=== PATIENT | male | born 1985 | race African-American/Black ===

== ENCOUNTER 2023-03-01 06:21 | Inpatient (IN) ==
[2023-03-01 07:20] LABS: ABS Lymphocytes 0.3 10^3/uL (1.0-4.8); ABS Monocytes 0.5 10^3/uL (0.0-1.1); ABS Neutrophils 8.1 10^3/uL (1.5-7.6); ABS Nucleated RBC 0.01 10^3/ul; Eosinophil % 0.5 %; Hematocrit 35.4 % (38-53); Hemoglobin 11.7 g/dL (13.2-16.3); Lymphocyte % 3.4 %; Mean Corpuscular Hemoglobin 27.9 pg (27-33); Mean Corpuscular Hgb Conc 32.9 g/dL (31-36); Mean Corpuscular Volume 84.7 fL (80-97); Nucleated Red Blood Cells % 0.1 %/100WBC (0.0-0.8); Platelet Count 262 10^3/uL (150-450); Red Blood Count 4.18 10^6/uL (4.06-5.63); Red Cell Distribution Width 15.9 % (12-17); White Blood Count 8.9 10^3/uL (3.6-10.2)
[2023-03-01 07:33] LABS: Albumin 4.6 g/dL (3.2-5.2); Albumin/Globulin Ratio 1.4 (1-3); Calcium 8.5 mg/dL (8.6-10.3); Creatinine, Serum 6.34 mg/dL (0.67-1.17); Globulin 3.4 g/dL (2-4); Potassium 3.7 mmol/L (3.5-5.0); Total Bilirubin 0.4 mg/dL (0.2-1.0); eGFR CKD-EPI 10.8 (>60)
[2023-03-01 07:35] LABS: INR 1.06 (0.83-1.13)
[2023-03-01 08:04] LABS: Magnesium 1.3 mg/dL (1.9-2.7)
[2023-03-01] MEDS ORDERED: Magnesium Sulfate 2 gm BAG 2 GM/50 ML BAG IVPB ONE (08:08)
[2023-03-01 08:35] LABS: High Sensitivity Troponin 1 Hr 74 pg/mL (<20)
[2023-03-01] MEDS ORDERED: Piperacillin/Tazobac 3.375 BAG 3.375 GM/100 ML BAG IV ONE (10:06)
[2023-03-01 10:30] LABS: Urine Appearance Cloudy; Urine Bilirubin Negative (Negative); Urine Blood Negative (Negative); Urine Color Yellow; Urine Glucose Negative (Negative); Urine Ketones Negative (Negative); Urine Nitrite Negative (Negative); Urine Protein 1+(30 mg/dL) (Negative); Urine Specific Gravity 1.009 (1.002-1.030); Urine Urobilinogen Negative (Negative)
[2023-03-01 10:36] LABS: Urine Bacteria 1+ (Absent); Urine Red Blood Cell 1+(3-5/hpf) (Absent); Urine White Blood Cell 3+(>20/hpf) (Absent)
[2023-03-01] MEDS ORDERED: Vancomycin 1,500 MG in NS 0.9% 250 ml 250 ML IVPB ONE (11:00)
[2023-03-01] MEDS ORDERED: Vancomycin 1,250 MG in NS 0.9% 250 ml 250 ML IVPB SCH (11:00)
[2023-03-01] MEDS ORDERED: Zosyn per Pharmacy NOTE FOLLOW UP SCH (12:00)
[2023-03-01] MEDS ORDERED: Vancomycin per Pharmacy 1 EA NOTE FOLLOW UP SCH (12:00)
[2023-03-01] MEDS ORDERED: NS 0.9% 1000 ml BAG 100 ML IV PRN (13:49)
[2023-03-01] MEDS ORDERED: Albumin Human 25% 25 GM/100 ML BTL IV PRN (13:49)
[2023-03-01] MEDS ORDERED: NS 0.9% 1000 ml BAG 200 ML IV PRN (13:49)
[2023-03-01] MEDS ORDERED: Lactated Ringers 1000 ml BAG 1,000 ML IV SCH (14:00)
[2023-03-01] MEDS: ZOSYN 3.375 GM Q12H per EXTENDED INFUSION IV SCH (14:28)
[2023-03-01] MEDS: Heparin 1,000 UNIT/ML 10 ml (10,000 UNITS) CATHLAB/DIALYSIS DIALYSIS PRN ×4 (15:30→18:45)
[2023-03-01 15:45] LABS: Hepatitis B Surface Antigen Nonreactive (Nonreactive)
[2023-03-01 15:50] LABS: Hepatitis B Core IgM Nonreactive (Nonreactive)
[2023-03-01 16:02] LABS: Hepatitis B Surface Ab Not Immune (Immune)
[2023-03-01 16:53] LABS: C Reactive Protein 8.77 mg/L (<8.01)
[2023-03-01 20:21] LABS: Activated Partial Thrombo Time 34.4 seconds (26.0-38.0); INR 1.23 (0.83-1.13)
[2023-03-01] MEDS ORDERED: Ondansetron 4 mg VIAL 2 MG/ML 2 ml VIAL IV PRN (21:12)
[2023-03-01] MEDS: Heparin 5000 UNITS/ML 1 mL VIAL SUBCUT SCH (21:14)
[2023-03-02] MEDS: ZOSYN 3.375 GM Q12H per EXTENDED INFUSION IV SCH ×2 (03:08→14:37)
[2023-03-02] MEDS ORDERED: Vancomycin Random Level NOTE FOLLOW UP ONE (05:30)
[2023-03-02 06:11] LABS: Hematocrit 27.7 % (38-53); Hemoglobin 9.1 g/dL (13.2-16.3); Mean Corpuscular Hemoglobin 27.8 pg (27-33); Mean Corpuscular Hgb Conc 32.9 g/dL (31-36); Mean Corpuscular Volume 84.6 fL (80-97); Mean Platelet Volume 7.2 fL (7.5-11.2); Platelet Count 208 10^3/uL (150-450); Red Blood Count 3.28 10^6/uL (4.06-5.63); White Blood Count 12.7 10^3/uL (3.6-10.2)
[2023-03-02 06:26] LABS: Calcium 8.5 mg/dL (8.6-10.3); Creatinine, Serum 5.16 mg/dL (0.67-1.17); Magnesium 1.8 mg/dL (1.9-2.7); Potassium 4.3 mmol/L (3.5-5.0); eGFR CKD-EPI 13.8 (>60)
[2023-03-02] MEDS: Heparin 5000 UNITS/ML 1 mL VIAL SUBCUT SCH ×2 (08:18→20:25)
[2023-03-02] MEDS ORDERED: Magnesium Sulfate 2 gm BAG 2 GM/50 ML BAG IVPB ONE (08:31)
[2023-03-03] MEDS: Calcium Carb (TUMS) 500 mg CHEW TAB PO SCH ×4 (01:03→20:45)
[2023-03-03] MEDS: ZOSYN 3.375 GM Q12H per EXTENDED INFUSION IV SCH ×2 (02:57→15:43)
[2023-03-03] MEDS ORDERED: Vancomycin Random Level NOTE FOLLOW UP ONE (06:00)
[2023-03-03 06:34] LABS: ABS Eosinophils 0.3 10^3/uL (0.0-0.5); ABS Lymphocytes 0.9 10^3/uL (1.0-4.8); ABS Neutrophils 5.3 10^3/uL (1.5-7.6); Eosinophil % 3.4 %; Hematocrit 28.5 % (38-53); Hemoglobin 9.6 g/dL (13.2-16.3); Lymphocyte % 12.2 %; Mean Corpuscular Hemoglobin 28.4 pg (27-33); Mean Corpuscular Hgb Conc 33.7 g/dL (31-36); Mean Corpuscular Volume 84.5 fL (80-97); Mean Platelet Volume 7.2 fL (7.5-11.2); Platelet Count 219 10^3/uL (150-450); Red Blood Count 3.37 10^6/uL (4.06-5.63); White Blood Count 7.5 10^3/uL (3.6-10.2)
[2023-03-03 06:47] LABS: Vancomycin Random 11.2 mcg/mL
[2023-03-03 06:48] LABS: Calcium 8.8 mg/dL (8.6-10.3); Creatinine, Serum 6.63 mg/dL (0.67-1.17); Magnesium 2.6 mg/dL (1.9-2.7); Phosphorus 5.3 mg/dL (2.5-5.0); eGFR CKD-EPI 10.2 (>60)
[2023-03-03] MEDS: Heparin 5000 UNITS/ML 1 mL VIAL SUBCUT SCH ×2 (08:18→20:43)
[2023-03-03] MEDS: Heparin 1,000 UNIT/ML 10 ml (10,000 UNITS) CATHLAB/DIALYSIS DIALYSIS PRN ×3 (12:00→14:57)
[2023-03-03] MEDS ORDERED: Vancomycin 750 MG in NS 0.9% 250 ML IVPB ONE (17:00)
[2023-03-04] MEDS: ZOSYN 3.375 GM Q12H per EXTENDED INFUSION IV SCH (03:26)
[2023-03-04 06:34] LABS: Calcium 8.6 mg/dL (8.6-10.3); Creatinine, Serum 5.36 mg/dL (0.67-1.17); Phosphorus 4.6 mg/dL (2.5-5.0); Potassium 4.1 mmol/L (3.5-5.0); eGFR CKD-EPI 13.2 (>60)
[2023-03-04] MEDS: Calcium Carb (TUMS) 500 mg CHEW TAB PO SCH (08:51)
[2023-03-04] MEDS: Heparin 5000 UNITS/ML 1 mL VIAL SUBCUT SCH (08:52)
[2023-03-04 10:59] VITALS: BP 154/91
[2023-03-05] MEDS ORDERED: Vancomycin Random Level NOTE FOLLOW UP ONE (06:00)
== END 2023-03-04 14:15 | disposition home or self-care (01) | DRG 720 ==
LOC: ED 06:21 → EDHOLD 11:20 → SUATTDRO 11:20 → EDHOLD 15:07 → MEDTELE 16:25
PROVIDERS: ADMIT Hospitalist; ATTEND Internal Medicine